=== PATIENT | female | born 1995 | race Caucasian/White ===

== ENCOUNTER → 2018-09-18 16:50 | Outpatient (CLI) | payer OTHER, SELFPAY | PROVIDERS: Referring Provider Obstetrics & Gynecology; Visit Provider Obstetrics & Gynecology | DX: N91.2 Amenorrhea, unspecified (principal) | CPT/HCPCS: 36415; 84702 ==

== ENCOUNTER → 2018-09-24 13:49 | Outpatient (CLI) | payer OTHER, SELFPAY ==
--- NOTE | 2018-09-24 13:51 | US_ITS ---
STUDY: FIRST TRIMESTER OBSTETRICAL ULTRASOUND REASON FOR EXAM: Female, 23 years old. Evaluate age of . LMP: Unknown. TECHNIQUE: Transabdominal and Transvaginal. Transvaginal imaging is performed for improved visualization of the endometrium and adnexal regions. TECHNICAL QUALITY: Adequate. PRIOR ULTRASOUND: Prior comparison studies are not available for review at this time. FINDINGS: There is visualization of a single gestational sac in a normal intrauterine position. The mean sac diameter (MSD) measures 2.9 cm, indicating an estimated gestational age (EGA) of 8 weeks, 1 days. The gestational sac shape is within normal limits. There is a visualized yolk sac. The yolk sac measures 4.5 mm. The placenta is non-visualized. There is visualization of a live embryo. The crown-rump length (CRL) measures 1.8 cm, indicating an estimated gestational age (EGA) of 8 weeks, 2 days. There is demonstrated cardiac activity with a heart rate of 160 bpm. The estimated gestation age (EGA) by US is 8 weeks, 2 days. The estimated date of delivery (MURRAY) by US is May 04, 2019. The uterus measures 9.2 x 6.4 x 5.4 cm. There is no demonstrated uterine fibroid. The cervix is closed. The right ovary measures 2.6 x 1.9 x 1.7. There is no right ovarian cyst. There is no visualized right adnexal mass or complex lesion. The left ovary measures 2.1 x 2.7 x 2.0 cm. There is a dominant follicular cyst measuring 1.2 x 1.6 cm. There is no visualized left adnexal mass or complex lesion. There is no fluid in the cul de sac. US/Init OB < 14Wks US IMPRESSION: Single living intrauterine gestation with estimated gestational age of 8 weeks 2 days. Electronically Signed: Daina Mcneal MD at 3:51 EST , Service support ,
== END ==
PROVIDERS: Referring Provider Obstetrics & Gynecology; Visit Provider Obstetrics & Gynecology
DX: Z36.87 Encounter for antenatal screening for uncertain dates (principal)
CPT/HCPCS: 76801

== ENCOUNTER → 2018-10-02 17:00 | Outpatient (CLI) | payer OTHER, SELFPAY ==
[2018-10-02 13:56] VITALS: BMI 43.8
[2018-10-02 20:39] LABS: Chlamydia Trachomatis by PCR Negative (Negative); Neisserai gonorrhoeae by PCR Negative (Negative); Probe Check PASS; Sample Adequacy Control PASS; Specimen Processing Control PASS
[2018-10-08 11:05] LABS: HPV Reflexed? NOT INDICATED
== END ==
PROVIDERS: Referring Provider Obstetrics & Gynecology; Visit Provider Obstetrics & Gynecology
DX: Z34.90 Encounter for supervision of normal pregnancy, unspecified, unspecified trimester (principal); Z12.4 Encounter for screening for malignant neoplasm of cervix
CPT/HCPCS: 87086; 87088; 87491; 87591; 87624; 88175; G0145

== ENCOUNTER → 2018-10-31 11:38 | Outpatient (CLI) | payer OTHER, SELFPAY ==
[2018-10-31 11:08] VITALS: BMI 43.8
[2018-10-31 12:43] LABS: Absolute Lymphocyte Count 1.55 X10^3/ul (0.83-4.51); Absolute Neutrophil Count 9.9 X10^3/uL (2.0-7.7); Basophil# 0.02 X10^3/uL; Basophil% 0.2 % (0-1); Eosinophil# 0.19 X10^3/uL; Eosinophils% 1.5 % (0-5); Hematocrit 39.6 % (37-47); Hemoglobin 13.6 g/dl (12.0-15.0); Lymphocyte # 1.55 X10^3/ul (4.0); Lymphocyte % 12.4 % (19-41); Mean Corp Hgb Conc 34.3 g/gl (32-36); Mean Corpuscular Hgb 29.4 pg (27.0-32.0); Mean Corpuscular Volume 85.7 fL (81-99); Mean Platelet Vol. 9.4 fl (6.2-12.0); Monocyte# 0.84 X10^3/uL; Monocyte% 6.7 % (0-10); Neutrophil # 9.88 X10^3/uL (2.7-7.7); Neutrophil % 78.8 % (47-70); Platelet Count 274 K/mm3 (150-450); RBC Distribution Width SD 40.5 fl (35.1-43.9); Red Blood Count 4.62 M/mm3 (4.2-5.4); White Blood Count 12.5 K/mm3 (4.4-11.0)
[2018-10-31 12:44] LABS: POSITIVE COUNT NO; POSITIVE DIFFERENTIAL NO; POSITIVE MORPHOLOGY NO
[2018-10-31 13:08] LABS: Glucose Challenge Gest 1H 50g 129 mg/dL (70-140)
[2018-10-31 13:56] LABS: HIV - WCH Non-Reactive (Nonreactive); Rubella IgG 227.2 IU/mL
[2018-11-01 13:08] LABS: HEPATITIS B SURFACE AG Negative (Negative)
[2018-11-06 23:33] LABS: Rapid Plasmin Reagin (RPR) NONREACTIVE (NONREACTIVE)
== END ==
PROVIDERS: Referring Provider Obstetrics & Gynecology; Visit Provider Obstetrics & Gynecology
DX: Z34.90 Encounter for supervision of normal pregnancy, unspecified, unspecified trimester (principal)
CPT/HCPCS: 36415; 82950; 85025; 86592; 86703; 86762; 86850; 86900; 87340